=== PATIENT | female | born 1965 | race Caucasian/White ===

== ENCOUNTER 2016-10-30 09:04 | Inpatient (IN) ==
[2016-10-30] MEDS ORDERED: Acetaminophen IV 1,000 MG/100 ML INFUS..BTL IVPB ONE (09:16)
[2016-10-30] MEDS ORDERED: Famotidine 20 MG/2 ML VIAL IVP ONE (09:16)
[2016-10-30] MEDS ORDERED: Albuterol 2.5 MG/3 ML NEBULIZER IH ONE ×2 (09:21→11:39)
[2016-10-30] MEDS ORDERED: cefOXitin 2,000 MG in D5% in Water (Mini-Bag+) 100 ML IVPB ONE (09:21)
[2016-10-30] MEDS ORDERED: Ringers Solution, Lactated 1,000 ML IVC SCH ×2 (09:30→11:45)
--- NOTE | 2016-10-30 09:35 | Anesthesia Evaluation PreOp ---
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 Significant HX Other Medical History: Other (Anxiety) Anesthesia History: No Prior Anesthetic Complications : No Alcohol Use: none Drug use: none Medications and Allergies Alprazolam [Xanax] 1 mg PO TID tablet 12/31/14 [Rx] Aspirin Enteric Coated [Aspirin EC] 81 mg PO DAILY #30 tablet.dr 12/31/14 [Rx] Omeprazole [PriLOSEC] 20 mg PO BID #60 capsule 12/31/14 [Rx] Simvastatin [Zocor] 40 mg PO HS tablet 12/31/14 [Rx] Clopidogrel [Plavix] 75 mg PO DAILY 05/17/16 [History] Isosorbide MONOnitrate (24 HR) [Imdur] 30 mg PO DAILY 05/17/16 [History] Metoprolol [Lopressor] 12.5 mg PO DAILY 05/17/16 [History] Nitroglycerin [Nitrostat] 0.4 mg SL PRN PRN 05/17/16 [History] Multivitamin [Multi-Day Vitamins] 1 tab PO DAILY 05/21/16 [History] Polyethylene Glycol 3350 [MiraLAX] 17 gm PO DAILY #30 powd.pack 07/17/16 [Rx] Cetirizine HCl [Zyrtec] 10 mg PO DAILY #10 tablet 08/01/16 [Rx] Dm Hb/PE/Acetaminophen/Chlorph [Yesenia-Goodells Plus Cld-Cough Cp] 1 cap PO BID PRN 09/10/16 [History] Meclizine [Antivert] 25 mg PO QID PRN 09/10/16 [History] Allergies Neomycin Allergy (Verified 10/30/16 09:27) Rash - Meds/Allergy Pre-op Review Medications Reviewed: Yes Allergies Reviewed: Yes Beta Blockers on Current Med List: Yes (Took Metoprolol today 0630) Anesthesia Results - Labs Laboratory Tests 10/22/16 10/22/16 15:41 15:41 Hgb 13.2 Hct 39.1 Plt Count 285 Sodium 141 Potassium 4.1 BUN 17 Creatinine 0.78 - Imaging EKG: report reviewed (Sinus Tach with short [place]) Chest x-ray: report reviewed (Stress ECHO Negative for ischemia, EF 55- 60%) Anesthesia Exam O2 Sat Height 1.63 m Height 1.63 m Weight 63.503 kg Weight 63.503 kg O2 Sat by Pulse Oximetry 94 Vital Signs Temp Pulse Resp BP Pulse Ox 97.4 F L 96 16 103/73 94 10/30/16 09:27 10/30/16 09:27 10/30/16 09:27 10/30/16 09:27 10/30/16 09:27 Height: 5'4 Weight: 140 lbs NPO (# of Hours): MN Pain Scale: 0 - HEENT Pupil (Motor): Pupils equal, EOMI Mallampati: II Teeth: Normal Oral Opening: Greater than 3 - SENIOR MARKETING MANAGER LOC: Oriented SENIOR MARKETING MANAGER Motor: Normal RUE, Normal LUE, Normal RLE, Normal LLE, Normal Face SENIOR MARKETING MANAGER Sensory: Normal: RUE, LUE, RLE, LLE, Face - Cardiac Rhythm: Regular Murmur: None JVD: No Carotid Bruit: No - Pulmonary Breath Sounds: bilateral Clear Respiratory Effort: Symmetrical Anesthesia Assess/Plan ASA Score: 3 (CAD HTN Tobacco) Modified Joshua Scale for Level of Consciousness: Cooperative, oriented, and tranquil Anesthetic Plan: General Monitoring Plan: Standard Monitors Recovery Plan: PACU (Discussed GA, agreees to proceed)
[2016-10-30] MEDS ORDERED: Lidocaine -MPF 2% 2 ML VIAL ONE (09:46)
[2016-10-30] MEDS ORDERED: *HR* Rocuronium Bromide 50 MG/5 ML VIAL ONE (09:46)
[2016-10-30] MEDS ORDERED: Lidocaine -MPF 4% 5 ML AMPUL ONE (09:46)
[2016-10-30] MEDS ORDERED: *HR* Midazolam HCl 2 MG/2 ML VIAL ONE (09:46)
[2016-10-30] MEDS ORDERED: *HR* FentaNYL (PF) 100 MCG/2 ML VIAL ONE (09:46)
[2016-10-30] MEDS ORDERED: *HR* Propofol 200 MG/20 ML VIAL IVP ONE (09:46)
--- NOTE | 2016-10-30 09:56 | History & Physical Report ---
Date of Encounter: 10/30/16 Time of Encounter: 09:55 24 Hour HP Update - Instructions Instructions: If the History and Physical is less than 30 days old and was completed prior to A.M. admission and or procedure and has NOT been updated on calendar day of procedure please complete this update prior to performing procedure. - Update Patient reports changes in Medical Condition: No Changes in examination, assessment, or condition: No Changes in Medication: No Preop tests/diagnostics Reviewed: Yes Surgery Remains Indicated: Yes Consent for Planned Operative Procedure(s) Verified: Yes - Pre-Operative Checklist Preoperative Checklist Indicated: Yes Prophylactic Antibiotic Ordered: Yes Home Medications Include Beta Laci: Yes Beta Laci Taken Today (Day of Surgery): Yes Beta Laci Taken Yesterday (Day Prior to Surgery): Yes Is VTE Prophylaxis Indicated?: Yes
[2016-10-30] MEDS ORDERED: Povidone-Iodine 28.4 GM TUBE TP ONE (10:32)
[2016-10-30] MEDS ORDERED: Neostigmine Methylsulfate 3 MG/3 ML SYRINGE ONE ×2 (10:50→12:07)
[2016-10-30] MEDS ORDERED: Dexamethasone 4 MG/ML VIAL ONE (10:50)
[2016-10-30] MEDS ORDERED: Ondansetron 4 MG/2 ML VIAL ONE (10:50)
[2016-10-30] MEDS ORDERED: *HR* Morphine 10 MG/ML VIAL ONE (11:02)
[2016-10-30] MEDS ORDERED: *HR* Promethazine 25 MG/ML VIAL IVP PRN (11:39)
[2016-10-30] MEDS ORDERED: *HR* Meperidine 25 MG/ML SYRINGE IVP PRN (11:39)
[2016-10-30] MEDS ORDERED: Ondansetron 4 MG/2 ML VIAL IVP ONE (11:39)
[2016-10-30] MEDS ORDERED: *HR* OxyCODONE/APAP 5/325 TABLET PO PRN (12:18)
[2016-10-30] MEDS ORDERED: Ondansetron 4 MG/2 ML VIAL IVP PRN ×2 (12:18→14:09)
[2016-10-30] MEDS ORDERED: *HR* HYDROmorphone (PF) 1 MG/ML SYRINGE IVP PRN (12:18)
--- NOTE | 2016-10-30 12:29 | Operative Note ---
Date of procedure: 10/30/16 Pre-op diagnosis: Sigmoid colon stricture Post-op diagnosis: same Procedure: Sigmoid colectomy Anesthesia: CRAIG Surgeon: Ricardo Ruiz Estimated blood loss (cc): 50 Specimen: Sigmoid colon Condition: stable Disposition: PACU Procedure in Detail: After informed consent the patient was taken to major operative suite and placed supine position and given adequate general anesthetic. The abdomen is prepped and draped in sterile fashion utilizing ChloraPrep standard draping techniques. Timeout was taken patient was identified. I made a vertical midline incision between the umbilicus and the pubis. An of the abdomen. Small bowel was retracted superiorly. The sigmoid colon was mobilized it was immediately evident that there was a rockhard scar from recurrent diverticular disease encompassing the left side of the pelvis. The sigmoid colon was densely angulated and involved in this rockhard scar. The colon proximal this was totally normal. I mobilized all of the sigmoid colon and the proximal rectum. The rectum was divided with a contour stapler. I divided the mesocolon leading to the sigmoid colon. This is done with clamps and hemostatic ligatures. Left ureter was identified and retracted out of the field. Once the mesocolon was divided with clamps and hemostatic ligatures I divided the junction between the descending colon and sigmoid colon. Both staple lines were dissected circumferentially. I then made a tension-free handsewn anastomosis at the level of the pelvic inlet I would estimate at 15 cm from the anus. 2-0 silk seromuscular stitches were used circumferentially and 3 -0 chromic was used on the mucosal layer. This gave an excellent technical result. There was no evidence of any leak. The abdomen was irrigated with copious amounts of antibiotic containing solution. The midline was closed with looped 0 PDS and the skin with Vicryl and skin clips. She tolerated the procedure well.
[2016-10-30] MEDS ORDERED: 0.9 % Sodium Chloride 1,000 ML IVC SCH (12:30)
[2016-10-30] MEDS ORDERED: EPHEDrine 50 MG/ML VIAL ONE (12:57)
[2016-10-30] MEDS: *HR* HYDROmorphone (PF) 1 MG/ML SYRINGE IVP PRN ×6 (13:10→22:51)
--- NOTE | 2016-10-30 13:47 | Anesthesia Evaluation Post Op ---
Date of Encounter: 10/30/16 Time of Encounter: 13:44 - Vital Signs Vital Signs: Vital Signs/O2 Sat, Most Current Temp Pulse Resp BP Pulse Ox 97.9 F 75 14 111/70 94 10/30/16 13:32 10/30/16 13:32 10/30/16 13:32 10/30/16 13:32 10/30/16 13:32 - Lungs Lungs: Clear Ascult./Percussion - Airway Airway: Non-obstructed - Cardiovascular Regular Rate - Mental Status Mental Status: Asleep with brisk response to light stimulation - Pain Pain Scale: 9 (asleep, when awaken states pain is 9/10 but falls quickly back to sleep) Pain Scale used: Numeric (1 - 10) - Nausea Vomiting Nausea Vomiting: Responds to treatment with IV Meds - Hydration Hydration: NPO, Corbin catheter - Discharge PostOp Status: Transfer Patient to floor
[2016-10-30] MEDS: 0.9 % Sodium Chloride 1,000 ML IVC SCH (15:14)
[2016-10-30] MEDS: cefOXitin 2,000 MG in D5% in Water (Mini-Bag+) 100 ML IVPB SCH (15:17)
[2016-10-30] MEDS: Albuterol 2.5 MG/3 ML NEBULIZER IH SCH ×2 (15:19→22:12)
[2016-10-30] MEDS ORDERED: Albuterol 2.5 MG/3 ML NEBULIZER IH SCH (16:00)
[2016-10-30] MEDS ORDERED: cefOXitin 2,000 MG in D5% in Water (Mini-Bag+) 100 ML IVPB SCH (16:00)
[2016-10-30] MEDS: *HR* Heparin 5,000 UNIT/ML VIAL SQ SCH (17:59)
[2016-10-30] MEDS ORDERED: *HR* Heparin 5,000 UNIT/ML VIAL SQ SCH (18:00)
[2016-10-30] MEDS ORDERED: *HR* Metoprolol 5 MG/5 ML VIAL IVP SCH (18:00)
[2016-10-30] MEDS: *HR* Metoprolol 5 MG/5 ML VIAL IVP SCH (18:03)
[2016-10-30] MEDS: Nicotine 14 MG PATCH.TD24 TD SCH (21:09)
[2016-10-31] MEDS: cefOXitin 2,000 MG in D5% in Water (Mini-Bag+) 100 ML IVPB SCH (00:02)
[2016-10-31] MEDS: *HR* HYDROmorphone (PF) 1 MG/ML SYRINGE IVP PRN ×10 (00:11→21:06)
[2016-10-31] MEDS: Albuterol 2.5 MG/3 ML NEBULIZER IH SCH ×4 (04:54→22:33)
[2016-10-31] MEDS: *HR* Heparin 5,000 UNIT/ML VIAL SQ SCH ×2 (06:04→18:18)
[2016-10-31] MEDS: *HR* Metoprolol 5 MG/5 ML VIAL IVP SCH ×4 (06:05→18:50)
[2016-10-31] MEDS ORDERED: Pantoprazole 40 MG VIAL IVP SCH (09:00)
--- NOTE | 2016-10-31 09:19 | General Surgery Progress Note ---
Date of Encounter: 10/31/16 Time of Encounter: 06:30 - Assessment and Plan (1) Stricture of sigmoid colon Current Visit: Yes Status: Acute POD #1 for; sigmoid colectomy with Dr. Ruiz on 10/30/16. Maintain bowel rest while awaiting return of bowel function Keep nothing by mouth except for ice chips every 8 hours. Supportive care and pain control IV fluids to maintain hydration at 50 ml per hour Incentive spirometer every 1 hour while awake Repeat am labs Discontinue Corbin catheter. I and O's. Serial abdominal exams Vital signs per protocol Elevate head of bed to 30 degrees Daily dressing change- complete today PPI therapy daily Protonix DVT prophylaxis Encourage up to chair. The assessment and plan as outlined above was discussed with the patient and/or family members who expressed understanding and agreement. All questions were answered. (2) Anxiety Current Visit: No Status: Chronic Continue Xanax home medication 1 mg 3 times a day when necessary. (3) Tobacco dependence Current Visit: No Status: Chronic Subjective Patient reports: feels better, pain is less Narrative: The patient was seen and examined. Patient states that she had a difficult time sleeping last night she did not have her Xanax she normally takes before bedtime. Patient reports that her abdomen is a little sore and she is interested in having the Corbin removed so that she can get up to urinate on her own. Patient denies passing gas or having a bowel movement. She states that receiving the ice chips was wonderful like eating a steak. Reports that she is hungry. Patient does have active bowel sounds. Patient has been tolerating her ice chips well she denies any nausea or vomiting. Objective Vital Signs - Last 8 Hours Temp Pulse Resp BP Pulse Ox 10/31/16 07:30 98.5 F 91 16 102/64 97 10/31/16 06:48 98.1 F 95 18 110/72 96 10/31/16 06:06 98 99/63 10/31/16 04:57 16 91 10/31/16 04:32 98.8 F 94 16 99/62 95 10/31/16 02:14 90 99/62 Intake and Output 10/30/16 10/31/16 10/31/16 23:59 07:59 15:59 Intake Total 60 / 60 220 / 220 Output Total 775 / 775 850 / 850 Balance -715 / -715 -630 / -630 Intake: IV Fluids 100 / 100 Mefoxin 2,000 MG In 100 / 100 Dextrose 5% (Minibag+) 100 ML 100 ML @ 200 mls/ hr IVPB Q8HR [facility] Rx#: [id number] Oral 60 / 60 120 / 120 Output: Urine 0 / 0 Catheter 775 / 775 850 / 850 Other: Weight 64.501 kg Blood Glucose* 113 123 Patient Weight 10/31/16 23:59 Weight 64.501 kg - General physical appearance well developed, well nourished, no distress, moderate pain - Eyes PERRL, normal ocular movement - ENT normal nares, normal mucosa, atraumatic, normocephalic, CN 2-12 grossly intact - Neck Neck exam: no masses, trachea midline - Respiratory normal expansion, normal respiratory effort, clear to auscultation - Cardiovascular Cardiovascular exam: Present: RRR, no murmurs/rubs/gallops. Absent: JVD - Abdomen Abdomen: Present: bowel sounds present, soft, tender (Postoperative tenderness as expected.) - Incision Incision: Present: clean and dry, intact - Integumentary no rash, no abnormal pigmentation - Neurologic CN 2-12 grossly intact, normal coordination - Musculoskeletal normal posture - Psychiatric oriented to time, oriented to person, oriented to place, speech is normal, memory intact - VTE Documentation of Mechanical Device: Intermittent pneumatic compression device Consult Discharge Plan - Plan Referrals: Ricardo Ruiz MD [Partnered Physician] - 11/18/16 11:50 am Elijah Segundo CNP [Primary Care Provider] - - Attending Attestation I examined this patient and my medical decision-making was reviewed with the HAM PUMPER/PA/Advanced Practice Nurse/Resident Physician. I agree with the documented findings, disposition and treatment plan as described except to the extent set forth below. The patient is seen and evaluated the morning rounds. She is excellent pain control. Incisions clean and dry. There is no flatus. Continue ice chips today and await activity. Expected postoperative ileus. Ricardo Ruiz MD FACS
[2016-10-31] MEDS: Pantoprazole 40 MG VIAL IVP SCH (10:19)
[2016-10-31] MEDS: Isosorbide MONOnitrate (24 HR) 30 MG TAB.ER.24H PO SCH (10:19)
[2016-10-31] MEDS: 0.9 % Sodium Chloride 1,000 ML IVC SCH (10:21)
[2016-10-31] MEDS: Nicotine 14 MG PATCH.TD24 TD SCH (10:24)
[2016-10-31] MEDS: ALPRAZolam 1 MG TABLET PO PRN (21:07)
[2016-11-01] MEDS: *HR* Metoprolol 5 MG/5 ML VIAL IVP SCH ×4 (00:07→19:56)
[2016-11-01] MEDS: *HR* HYDROmorphone (PF) 1 MG/ML SYRINGE IVP PRN ×5 (00:18→21:18)
[2016-11-01] MEDS: Albuterol 2.5 MG/3 ML NEBULIZER IH SCH ×4 (04:20→22:38)
[2016-11-01 06:18] LABS: Basophils % 0.3 %; Eosinophils % 0.3 %; Hematocrit 35.5 % (35.3-44.9); Hemoglobin 11.7 g/dL (11.5-15.4); Immature Granulocytes % 0.4 % (0-4); Lymphocytes # 2.3 K/mcL (0.6-4.6); Lymphocytes % 21.2 %; Mean Corpuscular Hemoglobin 31.1 pg (28.0-33.3); Mean Corpuscular Volume 94.4 fL (83.0-100.0); Mean Platelet Volume 10.4 fL (9.4-12.4); Monocytes # 0.9 K/mcL (0.0-1.3); Monocytes % 8.3 %; Neutrophils # 7.4 K/mcL (1.6-8.9); Platelet Count 224 K/mcL (140-400); Red Blood Count 3.76 M/mcL (3.82-4.97); Red Cell Distribution Width 13.5 % (11.5-14.5); Segmented Neutrophils % 69.5 %
[2016-11-01 06:31] LABS: BUN/Creatinine Ratio 12 (6-26); Blood Urea Nitrogen 9 mg/dL (7-20); Calcium 8.5 mg/dL (8.6-10.8); Carbon Dioxide 24 mEq/L (19-29); Chloride 105 mEq/L (98-109); Glucose 103 mg/dL (70-99); Osmolality,Calculated 283 (280-300); Potassium 3.8 mEq/L (3.5-4.5); Sodium 137 mEq/L (136-145); eGFR For African Americans > 60 (> 60); eGFR For Non-African Americans > 60 (> 60)
[2016-11-01] MEDS: *HR* Heparin 5,000 UNIT/ML VIAL SQ SCH ×2 (06:33→18:27)
[2016-11-01] MEDS: 0.9 % Sodium Chloride 1,000 ML IVC SCH (06:38)
[2016-11-01] MEDS: Isosorbide MONOnitrate (24 HR) 30 MG TAB.ER.24H PO SCH (07:45)
[2016-11-01] MEDS: Nicotine 14 MG PATCH.TD24 TD SCH (07:45)
[2016-11-01] MEDS: Pantoprazole 40 MG VIAL IVP SCH (07:47)
[2016-11-01] MEDS: *HR* OxyCODONE/APAP 5/325 TABLET PO PRN ×2 (12:45→18:27)
[2016-11-01] MEDS: ALPRAZolam 1 MG TABLET PO PRN (21:44)
--- NOTE | 2016-11-01 21:50 | General Surgery Progress Note ---
Date of Encounter: 11/01/16 Time of Encounter: 06:00 - Assessment and Plan (1) Stricture of sigmoid colon Current Visit: Yes Status: Acute POD #2 for; sigmoid colectomy with Dr. Ruiz on 10/30/16. Will advance to full liquid diet Supportive care and pain control IV fluids to maintain hydration at 50 ml per hour Incentive spirometer every 1 hour while awake Repeat am labs I and O's. Serial abdominal exams Vital signs per protocol Elevate head of bed to 30 degrees Daily dressing change- complete today PPI therapy daily Protonix DVT prophylaxis Encourage up to chair. Encourage ambulation. The assessment and plan as outlined above was discussed with the patient and/or family members who expressed understanding and agreement. All questions were answered. (2) Anxiety Current Visit: No Status: Chronic Continue Xanax home medication 1 mg 3 times a day when necessary. (3) Tobacco dependence Current Visit: No Status: Chronic Subjective Patient reports: feels better, pain is less, voiding w/o difficulty, no flatus, no bowel movement, nausea, afebrile Narrative: The patient was seen and examined. Patient states that she slept very well thanks to her anti anxiety medication. She was up to the chair 2 times yesterday and she walked down the halls. Patient reports that she has sat on the toilet several times feeling like she has to have a bowel movement however she states that she is afraid to have one. Patient reports minimal streaking of stool today however. Patient reports that she does have nausea on exertion but she has not vomited. She denies passage of gas. Patient has been tolerating her ice chips and clears well will advance to full liquid diet. Objective Vital Signs - Last 8 Hours Temp Pulse Resp BP Pulse Ox 11/01/16 19:29 98.7 F 109 14 113/69 97 11/01/16 14:20 98.3 F 106 20 112/66 92 Intake and Output 11/01/16 11/01/16 11/01/16 07:59 15:59 23:59 Intake Total 1000 / 1000 0 / 0 0 / 0 Output Total 500 / 500 100 / 100 200 / 200 Balance 500 / 500 -100 / -100 -200 / -200 Intake: IV Fluids 1000 / 1000 0.9 % Sodium Chloride 1, 1000 / 1000 000 ML @ 50 mls/hr IVC . Q20H [facility] Rx#:[id number] Oral 0 / 0 0 / 0 0 / 0 Output: Urine 500 / 500 100 / 100 200 / 200 Other: Meal NPO # Voids 1 Weight 65.589 kg Blood Glucose* 108 96 Patient Weight 11/01/16 23:59 Weight 65.589 kg - General physical appearance well developed, well nourished, no distress, moderate pain - Eyes PERRL, normal ocular movement - ENT normal pinna, normal nares, normal mucosa, atraumatic, normocephalic, CN 2-12 grossly intact - Neck Neck exam: no masses, trachea midline, no venous distension - Respiratory normal expansion, normal respiratory effort, clear to auscultation - Cardiovascular Cardiovascular exam: Present: RRR, no murmurs/rubs/gallops. Absent: JVD - Abdomen Abdomen: Present: bowel sounds present, soft, tender (Postoperative tenderness as expected) Abdominal Tenderness: diffusely - Incision Incision: Present: clean and dry, intact - Integumentary no rash, no abnormal pigmentation - Neurologic CN 2-12 grossly intact, normal coordination, normal sensation - Musculoskeletal normal gait, normal posture - Psychiatric oriented to time, oriented to person, oriented to place, speech is normal, memory intact - Labs 11/01/16 05:33 11/01/16 05:33 Diabetes panel 11/01/16 Range/Units 05:33 Sodium 137 (136-145) mEq/L Potassium 3.8 (3.5-4.5) mEq/L Chloride 105 (98-109) mEq/L Carbon Dioxide 24 (19-29) mEq/L BUN 9 (7-20) mg/dL Creatinine 0.74 (0.57-1.11) mg/dL Glucose 103 H (70-99) mg/dL Calcium 8.5 L (8.6-10.8) mg/dL Calcium panel 11/01/16 Range/Units 05:33 Calcium 8.5 L (8.6-10.8) mg/dL Pituitary panel 11/01/16 Range/Units 05:33 Sodium 137 (136-145) mEq/L Potassium 3.8 (3.5-4.5) mEq/L Chloride 105 (98-109) mEq/L Carbon Dioxide 24 (19-29) mEq/L BUN 9 (7-20) mg/dL Creatinine 0.74 (0.57-1.11) mg/dL Glucose 103 H (70-99) mg/dL Calcium 8.5 L (8.6-10.8) mg/dL Adrenal panel 11/01/16 Range/Units 05:33 Sodium 137 (136-145) mEq/L Potassium 3.8 (3.5-4.5) mEq/L Chloride 105 (98-109) mEq/L Carbon Dioxide 24 (19-29) mEq/L BUN 9 (7-20) mg/dL Creatinine 0.74 (0.57-1.11) mg/dL Glucose 103 H (70-99) mg/dL Calcium 8.5 L (8.6-10.8) mg/dL - VTE Documentation of Mechanical Device: Intermittent pneumatic compression device Consult Discharge Plan - Plan Referrals: Ricardo Ruiz MD [Partnered Physician] - 11/18/16 11:50 am Elijah Segundo CNP [Primary Care Provider] - - Attending Attestation I examined this patient and my medical decision-making was reviewed with the MARKETING EDITOR/PA/Advanced Practice Nurse/Resident Physician. I agree with the documented findings, disposition and treatment plan as described except to the extent set forth below. The patient is seen and evaluated on morning rounds. She had a bowel movement. We will advance to full liquids. I am very pleased with her clinical course. Ricardo Ruiz MD FACS
[2016-11-02] MEDS: *HR* Metoprolol 5 MG/5 ML VIAL IVP SCH ×3 (01:28→18:21)
[2016-11-02] MEDS: 0.9 % Sodium Chloride 1,000 ML IVC SCH (02:53)
[2016-11-02] MEDS: Albuterol 2.5 MG/3 ML NEBULIZER IH SCH ×3 (04:19→22:00)
[2016-11-02] MEDS: *HR* Heparin 5,000 UNIT/ML VIAL SQ SCH ×2 (05:58→18:22)
[2016-11-02] MEDS: *HR* OxyCODONE/APAP 5/325 TABLET PO PRN (05:59)
[2016-11-02 06:57] LABS: BUN/Creatinine Ratio 10 (6-26); Blood Urea Nitrogen 7 mg/dL (7-20); Calcium 9.2 mg/dL (8.6-10.8); Carbon Dioxide 18 mEq/L (19-29); Chloride 106 mEq/L (98-109); Glucose 74 mg/dL (70-99); Osmolality,Calculated 279 (280-300); Sodium 136 mEq/L (136-145); eGFR For African Americans > 60 (> 60); eGFR For Non-African Americans > 60 (> 60)
[2016-11-02 07:05] LABS: Basophils % 0.4 %; Eosinophils # 0.1 K/mcL (0.0-0.6); Eosinophils % 1.3 %; Hematocrit 39.6 % (35.3-44.9); Hemoglobin 12.6 g/dL (11.5-15.4); Immature Granulocytes % 0.4 % (0-4); Lymphocytes # 2.5 K/mcL (0.6-4.6); Lymphocytes % 29.9 %; Mean Corpuscular HGB Conc 31.8 g/dL (31.6-35.5); Mean Corpuscular Hemoglobin 30.9 pg (28.0-33.3); Mean Corpuscular Volume 97.1 fL (83.0-100.0); Monocytes # 0.6 K/mcL (0.0-1.3); Monocytes % 7.4 %; Platelet Count 205 K/mcL (140-400); Red Blood Count 4.08 M/mcL (3.82-4.97); Red Cell Distribution Width 13.3 % (11.5-14.5); Segmented Neutrophils % 60.6 %
--- NOTE | 2016-11-02 08:35 | Discharge Summary ---
<Rossy Meyer - Last Filed: 11/02/16 11:57> Date of Encounter: 11/02/16 Time of Encounter: 07:00 - Discharge Diagnosis (1) Stricture of sigmoid colon Priority: Primary Status: Resolved (2) Anxiety Priority: Secondary Status: Chronic (3) Tobacco dependence Priority: Secondary Status: Chronic - Discharge Medications Prescriptions: OxyCODONE/APAP 5/325 [Percocet 5/325 MG] 1 each PO Q4HR #30 tablet Ondansetron HCl [Zofran] 4 mg PO Q8HR #30 tablet Docusate Sodium 100 mg PO BID #60 capsule Home Medications: Aspirin Enteric Coated [Aspirin EC] 81 mg PO DAILY #30 tablet.dr 12/31/14 [Rx] Omeprazole [PriLOSEC] 20 mg PO BID #60 capsule 12/31/14 [Rx] Simvastatin [Zocor] 40 mg PO HS tablet 12/31/14 [Rx] Clopidogrel [Plavix] 75 mg PO DAILY 05/17/16 [History] Isosorbide MONOnitrate (24 HR) [Imdur] 30 mg PO DAILY 05/17/16 [History] Metoprolol [Lopressor] 12.5 mg PO DAILY 05/17/16 [History] Nitroglycerin [Nitrostat] 0.4 mg SL PRN PRN 05/17/16 [History] Multivitamin [Multi-Day Vitamins] 1 tab PO DAILY 05/21/16 [History] Polyethylene Glycol 3350 [MiraLAX] 17 gm PO DAILY #30 powd.pack 07/17/16 [Rx] Alprazolam [Xanax] 1 mg PO TID PRN 10/30/16 [History] Docusate Sodium 100 mg PO BID #60 capsule 11/02/16 [Rx] Ondansetron HCl [Zofran] 4 mg PO Q8HR #30 tablet 11/02/16 [Rx] OxyCODONE/APAP 5/325 [Percocet 5/325 MG] 1 each PO Q4HR #30 tablet 11/02/16 [Rx] Allergies/Adverse Reactions: Allergies Neomycin Allergy (Verified 10/30/16 09:56) Rash General Surgery Exam Initial Vital Signs Temp Pulse Resp BP Pulse Ox 97.4 F L 96 16 103/73 94 10/30/16 09:27 10/30/16 09:27 06/01/17 09:27 10/30/16 09:27 10/30/16 09:27 - General physical appearance well developed, well nourished, no distress, moderate pain - Eyes PERRL, normal ocular movement - ENT normal nares, normal mucosa, atraumatic, normocephalic, CN 2-12 grossly intact - Neck no masses, trachea midline - Respiratory normal expansion, normal respiratory effort, clear to auscultation - Cardiovascular Cardiovascular exam: Present: RRR. Absent: JVD - Abdomen Abdomen general surgery: Present: bowel sounds present, soft, tender ( Postoperative as expected) - Incision Incision: Present: clean and dry, intact - Integumentary Integumentary general surgery: Present: warm and dry, no abnormal pigmentation. Absent: diaphoresis, rash - Neurologic Present: CN 2-12 grossly intact, normal coordination, normal sensation - Musculoskeletal Present: normal gait, normal posture - Psychiatric Psychiatric general surgery: Present: A&Ox3, appropriate, speech is normal, memory intact Date of admission: 10/30/16 14:02 Primary care physician: Elijah Segundo CNP Discharging clinician: Ricardo Ruiz Anticipated date of discharge: 11/02/16 - Patient Status Disposition: Home, Self-Care Condition: Good Functional capacity at discharge: independent ambulation Overall status at discharge: patient is progressing back to baseline - Discharge Instructions Instructions: Bowel Obstruction (DC) Follow Up With: Ricardo Ruiz MD [Partnered Physician] - 11/18/16 11:50 am Elijah Segundo CNP [Primary Care Provider] - Additional Instructions: 1. May shower today. No tub bath for 2 weeks. 2. Wash incisions with soap and water and pat dry daily. 3. No lifting more than 20 lbs for [address] when off narcotics for over 24 hours and able to react safely in the car. 5. May climb stairs. Exceptions: Lifting 10-15 lbs for 4 - 6 weeks when: -Smoker -open cholecystectomy -complex incisional hernia -Riddhi. . - Diet and Activity Activity: increase activity as tolerated Diet: advance to your usual diet - Hospital Course Hospital course: Ms. Nuñez is a 51 year old female who was seen for sigmoid colon stricture and was treated surgically with a sigmoid colectomy by Dr. Ruiz on 10/30/16 without complication. Patient tolerated the procedure well. She has been progressing back to her baseline and recovering very well. Patient has been up to ambulate up and down the hallways without difficulty. Patient has been passing gas and having scant stools. Patient has tolerated a regular diet without nausea, vomiting or abdominal pain. Her pain is under control and described as minimal. On exam patient has active bowel sounds, no peritoneal signs, minimal tenderness as expected postoperatively. Vitals stable. Afebrile. Patient is clear from a surgical standpoint to return to home for discharge. - Time Spent with Patient Total time spent providing and/or coordinating discharge services: Less than 30 minutes Labs on day of discharge: Labs from last 24 hours 11/02/16 11/02/16 05:57 05:57 WBC 8.3 RBC 4.08 Hgb 12.6 Hct 39.6 MCV 97.1 MCH 30.9 MCHC 31.8 RDW 13.3 Plt Count 205 MPV 10.0 Immature Gran % 0.4 Seg Neutrophils % 60.6 Lymphocytes % 29.9 Monocytes % 7.4 Eosinophils % 1.3 Basophils % 0.4 Neutrophils # 5.0 Lymphocytes # 2.5 Monocytes # 0.6 Eosinophils # 0.1 Basophils # 0.0 Sodium 136 Potassium 4.0 Chloride 106 Carbon Dioxide 18 L BUN 7 Creatinine 0.68 Est GFR ( Amer) > 60 Est GFR (Non-Af Amer) > 60 BUN/Creatinine Ratio 10 Glucose 74 Calculated Osmolality 279 L Calcium 9.2 <Ricardo Ruiz - Last Filed: 11/02/16 14:49> Date of Encounter: 11/02/16 - Discharge Diagnosis (1) Stricture of sigmoid colon Status: Resolved (2) Anxiety Status: Chronic (3) Tobacco dependence Status: Chronic General Surgery Exam Initial Vital Signs Temp Pulse Resp BP Pulse Ox 97.4 F L 96 16 103/73 94 10/30/16 09:27 10/30/16 09:27 10/30/16 09:27 10/30/16 09:27 10/30/16 09:27 Date of admission: 10/30/16 14:02 Primary care physician: Elijah Segundo CNP - Hospital Course Hospital course: Ms. Nuñez is a 51 year old female - Time Spent with Patient Total time spent providing and/or coordinating discharge services: Labs on day of discharge: Labs from last 24 hours 11/02/16 11/02/16 11/02/16 05:57 05:57 05:44 WBC 8.3 RBC 4.08 Hgb 12.6 Hct 39.6 MCV 97.1 MCH 30.9 MCHC 31.8 RDW 13.3 Plt Count 205 MPV 10.0 Immature Gran % 0.4 Seg Neutrophils % 60.6 Lymphocytes % 29.9 Monocytes % 7.4 Eosinophils % 1.3 Basophils % 0.4 Neutrophils # 5.0 Lymphocytes # 2.5 Monocytes # 0.6 Eosinophils # 0.1 Basophils # 0.0 Sodium 136 Potassium 4.0 Chloride 106 Carbon Dioxide 18 L BUN 7 Creatinine 0.68 Est GFR ( Amer) > 60 Est GFR (Non-Af Amer) > 60 BUN/Creatinine Ratio 10 Glucose 74 POC Glucose 90 H Calculated Osmolality 279 L Calcium 9.2 11/01/16 11/01/16 11/01/16 23:47 17:02 11:52 WBC RBC Hgb Hct MCV MCH MCHC RDW Plt Count MPV Immature Gran % Seg Neutrophils % Lymphocytes % Monocytes % Eosinophils % Basophils % Neutrophils # Lymphocytes # Monocytes # Eosinophils # Basophils # Sodium Potassium Chloride Carbon Dioxide BUN Creatinine Est GFR ( Amer) Est GFR (Non-Af Amer) BUN/Creatinine Ratio Glucose POC Glucose 100 H 85 96 H Calculated Osmolality Calcium - Attending Attestation I examined this patient and my medical decision-making was reviewed with the ART EDUCATOR/PA/Advanced Practice Nurse/Resident Physician. I agree with the documented findings, disposition and treatment plan as described except to the extent set forth below. The patient was seen and evaluated on morning rounds this morning. She is passing gas and had a bowel movement last evening. She will be tolerated to regular diet. She is ready for discharge. I will see her back 1-2 weeks in the office Ricardo Ruiz MD FACS
[2016-11-02] MEDS: Isosorbide MONOnitrate (24 HR) 30 MG TAB.ER.24H PO SCH (08:51)
[2016-11-02] MEDS: Pantoprazole 40 MG VIAL IVP SCH (08:52)
[2016-11-02] MEDS: Nicotine 14 MG PATCH.TD24 TD SCH (08:52)
[2016-11-02 11:48] VITALS: BP 107/71
[2016-11-02] MEDS: *HR* HYDROmorphone (PF) 1 MG/ML SYRINGE IVP PRN ×2 (12:00→18:21)
== END 2016-11-02 19:30 | disposition home or self-care (01) | DRG 330 ==
LOC: SAMDAY 09:04 → 3ANU 14:02
PROVIDERS: ADMIT Surgery; ATTEND Surgery